=== PATIENT | male | born 1970 | race American Indian/Alaskan Native ===

== ENCOUNTER 2016-07-02 05:21 | Emergency (ER) | payer OTHER ==
[2016-07-02 06:10] LABS: Basophils % (Auto) 0.5 % (0.0-1.8); Eosinophils % (Auto) 0.5 % (0.0-4.3); Hematocrit 41.2 % (35.5-45.6); Hemoglobin 13.8 gm/dl (11.8-15.2); Mean Corpuscular HGB Conc 34 % (32-34); Mean Corpuscular Hemoglobin 31 pg (28-32); Mean Corpuscular Volume 93 fl (84-94); Platelet Count 116 K/mm3 (140-440); Red Blood Count 4.43 M/mm3 (3.65-5.03); Red Cell Distribution Width 12.9 % (13.2-15.2); White Blood Count 6.7 K/mm3 (4.5-11.0)
[2016-07-02 06:24] LABS: Alanine Aminotransferase 11 units/L (7-56); Albumin 4.3 g/dL (3.9-5); Albumin/Globulin Ratio 1.3 %; Alkaline Phosphatase 91 units/L (35-129); Anion Gap 18 mmol/L; Bilirubin,Total 0.2 mg/dL (0.1-1.2); Blood Urea Nitrogen 14 mg/dL (9-20); Calcium 8.7 mg/dL (8.4-10.2); Carbon Dioxide 26 mmol/L (22-30); Chloride 98.7 mmol/L (98-107); Glucose 147 mg/dL (75-100); Lipase 24 units/L (13-60); Potassium 3.5 mmol/L (3.6-5.0); Sodium 139 mmol/L (137-145); Total Protein 7.5 g/dL (6.3-8.2)
[2016-07-02] MEDS ORDERED: TYLENOL PO ONE (07:01)
[2016-07-02 08:55] LABS: Bilirubin,Urine NEG (Negative); Blood,Urine NEG (Negative); Ketones,Urine NEG (Negative); Leukocyte Esterase,Urine NEG (Negative); Mucus,Urine FEW /HPF; Nitrite,Urine NEG (Negative); Protein,Urine <15 mg/dL mg/dL (Negative); Urobilinogen,Urine < 2.0 mg/dL (<2.0); WBC,Urine < 1.0 /HPF (0.0-6.0)
[2016-07-02 10:50] LABS: Bilirubin,Urine NEG (Negative); Blood,Urine NEG (Negative); Ketones,Urine NEG (Negative); Leukocyte Esterase,Urine NEG (Negative); Mucus,Urine FEW /HPF; Nitrite,Urine NEG (Negative); Protein,Urine <15 mg/dL mg/dL (Negative); Urobilinogen,Urine < 2.0 mg/dL (<2.0); WBC,Urine < 1.0 /HPF (0.0-6.0)
--- NOTE | 2016-07-02 11:07 | Emergency Department Report ---
HPI - General Chief Complaint: Abdominal Pain Time Seen by Provider: 07/02/16 10:51 - HPI HPI: Chief complaint: Right upper quadrant abdominal pain HPI: Patient is a 45-year-old male with a history of gallstones diagnosed 2-3 years ago. Patient states he never followed up. Patient states that he has some right upper quadrant pain started around midnight with some nausea and vomiting. Patient denies any diarrhea, fever, chest pain, suppress, cough or cold. Patient does have a history of HIV and is on medication with normal CD4 counts. States he ate fried fish last night. Mode of arrival: [private car] Source: [Patient] [old chart] Began: Midnight Duration: Continuous Context: See above Quality: Crampy Severity: 7 out of 10 Improved with: Nothing Worsened with: Nothing Associated signs and symptoms: Subjective fever ED Past Medical Hx - Past Medical History Previous Medical History?: Yes Hx HIV: Yes Additional medical history: Cholelithiasis diagnosed on CT scan - Surgical History Past Surgical History?: No - Social History Smoking Status: Never Smoker Substance Use Type: Alcohol - Medications Home Medications: Home Medications Medication Instructions Recorded Confirmed Last Taken Type Emtricitabin/Tenofovir [TRUVADA 1 tab PO DAILY 09/08/13 09/08/13 Unknown History 200-300 mg] Promethazine [Phenergan] 25 mg LA Q6HR PRN #2 supp.rect 09/08/13 Unknown Rx Ritonavir [Norvir] 100 mg PO DAILY 09/08/13 09/08/13 Unknown History HYDROcodone/APAP 5-325 [Debord 1 each PO Q6HR PRN #14 tablet 07/02/16 Unknown Rx 5-325 mg TAB] Promethazine [Phenergan TAB] 25 mg PO Q6H PRN #10 tablet 07/02/16 Unknown Rx ED Review of Systems ROS: Stated complaint: ABD PAIN Other details as noted in HPI ROS Constitutional: No fever ENT: No uri symptoms Cardiovascular: No chest pain Respiratory: No sob or cough GI: No diarrhea : No dysuria frequency or urgency, Skin: No rash Neuro: No focal weakness or numbness Psych: No depression Anoop/lymph: No edema Physical Exam - Physical Exam Vital Signs: Vital Signs 07/02/16 05:38 Temperature 98.5 F Pulse Rate 87 Respiratory 22 Rate Blood Pressure 151/81 O2 Sat by Pulse 100 Oximetry Physical Exam: GENERAL: The patient is well-developed well-nourished . HEENT: Normocephalic. Atraumatic. Extraocular motions are intact. Patient has moist mucous membranes. NECK: Supple. No meningitic signs are noted. There is no adenopathy noted. CHEST/LUNGS: Clear to auscultation. There is no respiratory distress noted. HEART/CARDIOVASCULAR: Regular. There is no tachycardia. There is no gallop rub or murmur. ABDOMEN: Abdomen is soft, mild right upper quadrant tenderness without rebound or guarding. Patient has normal bowel sounds. There is no abdominal distention. SKIN: There is no rash. There is no edema. There is no diaphoresis. NEURO: The patient is awake, alert, and oriented. The patient is cooperative. The patient has no focal neurologic deficits. The patient has normal speech. MUSCULOSKELETAL: There is no tenderness or deformity. There is no limitation range of motion. There is no evidence of acute injury. ED Course Vital Signs 07/02/16 05:38 Temperature 98.5 F Pulse Rate 87 Respiratory 22 Rate Blood Pressure 151/81 O2 Sat by Pulse 100 Oximetry ED Medical Decision Making - Lab Data Result diagrams: 07/02/16 05:54 07/02/16 05:54 Laboratory Tests 07/02/16 05:54 Lipase 24 Urinalysis within normal limits. Critical care attestation.: If time is entered above; I have spent that time in minutes in the direct care of this critically ill patient, excluding procedure time. ED Disposition Clinical Impression: Cholelithiasis Qualifiers: Cholelithiasis location: gallbladder Cholecystitis presence: without cholecystitis Biliary obstruction: without biliary obstruction Qualified Code(s) : K80.20 - Calculus of gallbladder without cholecystitis without obstruction Disposition: DISCHARGED TO HOME OR SELFCARE Is pt being admited?: No Does the pt Need Aspirin: No Condition: Stable Instructions: Biliary Colic (ED) Prescriptions: HYDROcodone/APAP 5-325 [Debord 5-325 mg TAB] 1 each PO Q6HR PRN #14 tablet PRN Reason: Pain Promethazine [Phenergan TAB] 25 mg PO Q6H PRN #10 tablet PRN Reason: Nausea Referrals: AUGUSTO MONTERO MD [Primary Care Provider] - 3-5 Days SCAR JETER MD [Staff Physician] - 3-5 Days Time of Disposition: 14:02
[2016-07-02] MEDS ORDERED: ATIVAN ONE (12:04)
--- NOTE | 2016-07-02 12:04 | Ultrasound Report ---
RIGHT UPPER QUADRANT ULTRASOUND: HISTORY: Right upper quadrant abdominal pain. Technique: Transabdominal ultrasound imaging with Doppler interrogation. FINDINGS: Multiple small shadowing gallstones are noted within the gallbladder. No evidence for wall thickening, surrounding fluid or abnormal distention. The common duct is normal in caliber. The right kidney is slightly echogenic consistent with mild medical renal disease. Images of the liver parenchyma, pancreas, and aorta are within normal limits. No perihepatic ascites. IMPRESSION: Cholelithiasis. Medical renal disease.
[2016-07-02 15:35] VITALS: BP 142/78
== END 2016-07-02 14:30 | disposition home or self-care (01) ==
LOC: ED 05:21
DX: K80.20 Calculus of gallbladder without cholecystitis without obstruction (principal)
CPT/HCPCS: 36415; 76705; 80053; 81001; 83690; 85025; J2060